=== PATIENT | male | born 1985 | race Caucasian/White ===

== ENCOUNTER 2019-03-07 13:24 | Emergency (ER) | payer MEDICAID ==
[~2019-03-07] VITALS: Ht 165.1 cm; Wt 82.1 kg
[2019-03-07 13:28] VITALS: Ht 165.1 cm; Wt 82.1 kg
[2019-03-07 14:47] VITALS: BP 123/58
== END 2019-03-07 14:47 | disposition home or self-care (01) ==
LOC: ED 13:24
DX: S01.111A Laceration without foreign body of right eyelid and periocular area, initial encounter (principal); W50.0XXA Accidental hit or strike by another person, initial encounter; Y93.66 Activity, soccer; Y92.322 Soccer field as the place of occurrence of the external cause; Y99.8 Other external cause status
CPT/HCPCS: 90715; J2001